=== PATIENT | male | born 1955 | race Caucasian/White ===

== ENCOUNTER 2021-11-23 11:04 | Outpatient (CLI) | payer MEDICARE, SELFPAY ==
--- NOTE | ~2021-11-23 | XR_ITS ---
XR abdomen/kub 1V DATE: 11/23/2021 12:33 INDICATION: Kidney calculus TECHNIQUE: AP ejection, 2 views COMPARISON: 04/06/2004 plantar and FINDINGS: There is approximately 4 x 10 mm calcification overlying the lower pole right kidney. There are several small calcifications overlying the lower pole of the left kidney. Bilateral nephrolithia sis is suspected. Noncontrast CT examination would be more sensitive and accurate for detection of ur inary tract calculi. Surgical clips, right upper quadrant, likely due to cholecystectomy. No evidence of bowel obstruction. The psoas shadows are intact. No visceromegaly is evident. There is rotatory dextroscoliosis and severe degenerative disc disease of the lumbar spine. The sacro iliac joints are intact. IMPRESSION: Suspected bilateral nephrolithiasis Status post cholecystectomy Reviewed, dictated and finalized at [facility]. Reviewed, dictated and finalized at [facility].
== END 2021-11-23 11:05 ==
PROVIDERS: PCP Family Medicine; Visit Provider Urology
DX: N20.0 Calculus of kidney (principal); Z90.49 Acquired absence of other specified parts of digestive tract
CPT/HCPCS: 74018

== ENCOUNTER 2021-12-01 11:24 | Outpatient (CLI) | payer MEDICARE, SELFPAY ==
[2021-12-01 12:16] LABS: Partial Thromboplastin Time 24.6 SECONDS (22.3-36.8); Prothrombin Time 12.8 Seconds (11.1-14.7)
== END 2021-12-01 11:25 | disposition home or self-care (01) ==
LOC: ANHSURGERY 11:29
PROVIDERS: PCP Family Medicine; Visit Provider Urology
DX: N20.0 Calculus of kidney (principal); Z01.818 Encounter for other preprocedural examination
CPT/HCPCS: 36415; 85610; 85730; 87086

== ENCOUNTER 2021-12-09 02:28 | Day surgery (SDC) | payer MEDICARE, SELFPAY ==
[2021-12-01 09:08] VITALS: BMI 39.5
--- NOTE | 2021-12-01 09:37 | PC.NURSE ---
Report to the Outpatient Waiting Room, entrance under the green pavilion located off [facility], at time _0700_ on date _12/09/21_. OR Time: _0900_. - You and your visitor will be asked a series of questions to screen for COVID 19 for your protection. - Only one visitor is allowed at this time. - The patient visitor is requested to leave or wait in car when not with patient. - A mask is required within the hospital. Patients may have clear liquids (water, carbonated beverages, clear teas, apple juice) until 3 hours prior to surgery (0600 AM) with a maximum of 20 ounces. - No food from midnight until time of surgery Take the following medications with a SIP of water the morning of surgery: _CARVEDILOL_ Medications to discontinue per physician _ASPIRIN PER DR. KENNEY'S INSTRUCTIONS - 7 DAYS PRIOR TO SURGERY, Date to take last dose 12/01/21_ Please no deodorant, or body powder the day of surgery. No jewelry (including any body piercings) or valuables the day of surgery, leave them at home. Please take a shower or bath the night before, or the morning of, surgery with an antibacterial soap. Wear comfortable, loose fitting clothing. - Jewelry must be removed prior to entering the operating room. Rings and piercings that are not removed may be cut off. - The hospital will not accept responsibility for valuables. - Please leave all valuables, including medications, at home the day of surgery. If you are going home after surgery, a licensed automation driver must drive you home. - NO public transportation without another adult. - We recommend that an adult stay with you for 24 hours following discharge. - We also recommend that you do not drive, make important decision, drink alcoholic beverages, or take any drugs that were not prescribed by your health care provider for at least 24 hours after your discharge time. Follow any additional instructions given to you from your surgeon. If you or anyone in your household have experienced Covid symptoms in the past week, please notify your surgeon or the nurse liaison at the phone number below for possible testing. Telephone instructions given to _PT'S SPOUSE (KINGS)__and asked if any additional questions and then verbalized understanding. Patient advised to call surgeon office or pre surgery nurse liaison [phone] if any additional questions.
[2021-12-09] VITALS (8 sets, daily range): BP systolic 102–140; BP diastolic 58–86; PULSE 54–66; RESP 12–20; TEMP 36.2–37.2; O2SAT 98–100
--- NOTE | ~2021-12-09 | XR_ITS ---
XR abdomen/kub 1V 12/09/2021 07:09 Indication: Preop ESWL. Renal stones. Procedure: KUB Comparison: 11/23/2021 Findings: There are bilateral renal stones. There is a stone in the expected location of the right UP J measuring up to 1.5 cm at the L4 level. There is severe lumbar spondylosis with dextroscoliosis. Th ere are cholecystectomy clips. There is osteoarthritis of the hips. Lung bases unremarkable. Impression: 1: Bilateral nephrolithiasis with right UPJ stone measuring 1.5 cm. Reviewed, dictated and finalized at location [facility]. Impression: 1: Bilateral nephrolithiasis with right UPJ stone measuring 1.5 cm.
--- NOTE | 2021-12-09 07:30 | ECG_ITS ---
Measurements Intervals [place] Rate: 59 P: 31 MN: 177 QRS: -57 QRSD: 165 T: 30 QT: 450 QTc: 448 Interpretive Statements SINUS BRADYCARDIA WITH SINUS ARRHYTHMIA RIGHT BUNDLE BRANCH BLOCK LEFT ANTERIOR FASCICULAR BLOCK ABNORMAL ECG Electronically Signed On 12-09-2021 7:33:34 CDT by Malcom José D.O.
--- NOTE | 2021-12-09 07:44 | P.PNAN_ITS ---
Anes - Initial Pre Proc Eval Procedure: Operation Date: 12/09/21 09:00 Proposed Procedures p Right Renal, Extracorporeal Shock Wave Lithotripsy - Kaden Wolfe MD Date/Time: 12/09/21 07:44 Surgeon: Kaden Wolfe MD Pre Op Diagnosis: right renal kidney stone Patient Data Age: 66 Gender: M Height: 1.78 m Weight: 125 kg Allergies Allergy/AdvReac Type Severity Reaction Status Date / Time No Known Allergies Allergy Unknown Unverified 12/09/21 07:40 Home Medications Medication Instructions Recorded Confirmed Type aspirin 81 mg capsule 81 mg PO QAM 12/01/21 12/09/21 History atorvastatin 20 mg tablet 20 mg PO QAM 12/01/21 12/09/21 History carvedilol 3.125 mg tablet 3.125 mg PO BID 12/01/21 12/09/21 History ezetimibe 10 mg tablet 10 mg PO QAM 12/01/21 12/09/21 History omeprazole 20 mg capsule,delayed 20 mg PO QAM 12/01/21 12/09/21 History release ramipril 5 mg capsule 5 mg PO HS 12/01/21 12/09/21 History Patient hx anesthesia problems: none Family hx anesthesia problems: none Results Review: All pre-operative results and documents have been reviewed as part of the pre- operative evaluation. [facility] Past Medical History Medical History GERD (gastroesophageal reflux disease) Hyperlipidemia Hypertension Social History Social History Smoking status: Never smoker Second hand tobacco smoke exposure: No Alcohol intake: current Alcohol use details: [place] 6-8/MONTH Substance use: never Substance use type: does not use Living arrangements: with family Spiritual care concerns: No Anes - Eval Final PreProcedure Day of Procedure 12/09/21 07:44 Patient weight: morbidly obese Heart: regular rate and rhythm Lungs: clear to auscultation Neurological: alert and oriented ASA classification: III Emergent: no Anesthetic plan: proceed Anesthesia type and monitoring: general LMA and standard monitoring Results Review: All pre-operative results and documents have been reviewed as part of the pre- operative evaluation. Informed Consent: The patient's anesthetic plan and its attendant risks and benefits were discussed with the patient/family/POA. Questions were solicited and answers provided to the satisfaction of the patient/family/POA.
[2021-12-09] MEDS: LACTATED RINGERS 1,000 ML 30 ML IV CONT ×2 (07:45→09:31)
--- NOTE | 2021-12-09 08:04 | WPDHPUPDATE1 ---
History and Physical Update Update Date/Time: 12/09/21 08:04 History and Physical has been reviewed, including an updated exam of the patient. There are NO changes in the patient's condition. Risks, benefits, and alternatives have been discussed and questions answered. Patient agrees to proceed with procedure. Proceed with ESWL of right UPJ calculus
[2021-12-09] MEDS: ceFAZolin 3 GM/D5W 100 ML 100 ML IVPB (08:17)
--- NOTE | 2021-12-09 09:02 | P.OP_ITS ---
Procedure Note - Detailed Date of Procedure 12/09/21 Pre-op Diagnosis right renal kidney stone/UPJ calculus Post-op Diagnosis Same Procedure Performed Lithotripsy of right UPJ calculus Surgeon Kaden Wolfe MD Anesthesia General Description of Procedure Patient is taken to the operative suite correctly identified. Once anesthesia was obtained the stone was localized in both planes. Two thousand five hundred shocks were given to the stone. Patient tolerated procedure well without any complications and was taken recovery stable condition. He will follow-up in 7- 10 days with KUB. Drains No Packing No Pathology None sent Complications No immediate complications Condition Stable Disposition PACU
[2021-12-09] MEDS: oxyCODONE HCL (*CRX) 5 MG TAB IR PO (09:49)
== END 2021-12-09 10:21 | disposition home or self-care (01) ==
PROVIDERS: PCP Family Medicine; Visit Provider Urology
PROC: (CPT 50590; principal; 2021-12-09 09:00)
DX: N20.1 Calculus of ureter (principal); I10 Essential (primary) hypertension; E78.5 Hyperlipidemia, unspecified; K21.9 Gastro-esophageal reflux disease without esophagitis; Z79.82 Long term (current) use of aspirin; E66.01 Morbid (severe) obesity due to excess calories; Z68.38 Body mass index [BMI] 38.0-38.9, adult
CPT/HCPCS: 50590; 36415; 74018; 85610; 85730; 87086; 93005; A9270; J0690; J1100; J2405; J2704; J7120

== ENCOUNTER 2021-12-21 11:37 | Outpatient (CLI) | payer MEDICARE, SELFPAY ==
--- NOTE | ~2021-12-21 | XR_ITS ---
XR abdomen/kub 1V 12/21/2021 12:02 Indication: Renal stones Procedure: KUB Comparison: 12/09/2021 Findings: Bowel gas pattern is nonobstructive. There are left renal stones. There is a calcification at the L3 level on the right, suspicious for ureteral stone. Bowel gas pattern nonobstructive. Severe lumbar spondylosis with dextroscoliosis. No acute osseous abnormality. There are cholecystectomy cli ps. Impression: 1: Possible right ureteral stone at the L3 level just below the transverse process. 2: Left nephrolithiasis. Reviewed, dictated and finalized at location A. Impression: 1: Possible right ureteral stone at the L3 level just below the transverse proc ess. 2: Left nephrolithiasis.
== END 2021-12-21 11:38 ==
LOC: MICIMG 11:40
PROVIDERS: PCP Family Medicine; Visit Provider Urology
DX: N20.0 Calculus of kidney (principal); M47.816 Spondylosis without myelopathy or radiculopathy, lumbar region
CPT/HCPCS: 74018

== ENCOUNTER 2021-12-23 13:31 | Outpatient (CLI) | payer MEDICARE, SELFPAY | END 2021-12-23 13:32 | disposition home or self-care (01) | LOC: ANHSURGERY 13:34 | PROVIDERS: PCP Family Medicine; Visit Provider Urology | DX: N20.1 Calculus of ureter (principal); Z01.818 Encounter for other preprocedural examination | CPT/HCPCS: 87086 ==

== ENCOUNTER 2021-12-27 00:12 | Day surgery (SDC) | payer MEDICARE, SELFPAY ==
--- NOTE | 2021-12-23 11:00 | PC.NURSE ---
Report to the Outpatient Waiting Room, entrance under the green pavilion located off [facility], at time 0830 on date __12/27/21 . OR Time: _1030 . - You and your visitor will be asked a series of questions to screen for COVID 19 for your protection. - Only one visitor is allowed at this time. - The patient visitor is requested to leave or wait in car when not with patient. - A mask is required within the hospital. Patients may have clear liquids (water, carbonated beverages, clear teas, apple juice) until 3 hours prior to surgery with a maximum of 20 ounces. - No food from midnight until time of surgery - Infants may have breast milk until 4 hours before surgery, infant formula 6 hours prior to surgery. - Children will be allowed to drink immediately following surgery. If applicable, please bring a bottle or sippy cup to assist with drinking. Juice, water, soda, and popsicles are readily available. For infants on formula, please bring formula the day of surgery. Pacifiers are allowed. Take the following medications with a SIP of water the morning of surgery: ____CARVEDILOL Medications to discontinue per physician ____ASPIRIN PER DR KENNEY, VITAMINE C 3 DAYS PRE OP Date to take last dose__12/23/21 Please no make-up, nail cypriot, hairspray, perfume, deodorant, or body powder the day of surgery. No jewelry (including any body piercings) or valuables the day of surgery, leave them at home. Please take a shower or bath the night before, or the morning of, surgery with an antibacterial soap. Wear comfortable, loose fitting clothing. Children are encouraged to wear pajamas. - Jewelry must be removed prior to entering the operating room. Rings and piercings that are not removed may be cut off. - The hospital will not accept responsibility for valuables. - Please leave all valuables, including medications, at home the day of surgery. If you are going home after surgery, a licensed auto haulaway driver must drive you home. - NO public transportation without another adult. - We recommend that an adult stay with you for 24 hours following discharge. - We also recommend that you do not drive, make important decision, drink alcoholic beverages, or take any drugs that were not prescribed by your health care provider for at least 24 hours after your discharge time. For Pediatric surgeries, we recommend two adults accompany the child home (only one inside the building at this time). Follow any additional instructions given to you from your surgeon. If you or anyone in your household have experienced Covid symptoms in the past week, please notify your surgeon or the nurse liaison at the phone number below for possible testing. Telephone instructions given to __PT'S KINGS and asked if any additional questions and then verbalized understanding. Patient advised to call surgeon office or pre surgery nurse liaison [phone] if any additional questions.
[2021-12-23 11:06] VITALS: BMI 41.9
--- NOTE | 2021-12-23 11:07 | PC.NURSE ---
STATES NO CHANGE IN HEALTH HX SINCE LAST INTERVIEW ON 12/01/21
--- NOTE | 2021-12-26 14:38 | P.PNAN_ITS ---
Anes - Initial Pre Proc Eval Procedure: Operation Date: 12/27/21 10:30 Proposed Procedures p Cystoscopy, Right Retrograde Pyelogram, Right Ureteroscopy, Right Stone Extraction, Right Ureteral Stent Placement, Possible Holmium Laser Lithotripsy - Kaden Wolfe MD Date/Time: 12/26/21 14:38 Surgeon: Kaden Wolfe MD Pre Op Diagnosis: Right ureteral stone Patient Data Age: 66 Gender: M Height: 1.73 m Weight: 125.2 kg Allergies Allergy/AdvReac Type Severity Reaction Status Date / Time No Known Allergies Allergy Unknown Unverified 12/23/21 10:53 Home Medications Medication Instructions Recorded Confirmed Type aspirin 81 mg capsule 81 mg PO QAM 12/01/21 12/23/21 History atorvastatin 20 mg tablet 20 mg PO QAM 12/01/21 12/23/21 History carvedilol 3.125 mg tablet 3.125 mg PO BID 12/01/21 12/23/21 History ezetimibe 10 mg tablet 10 mg PO QAM 12/01/21 12/23/21 History omeprazole 20 mg capsule,delayed 20 mg PO QAM 12/01/21 12/23/21 History release ramipril 5 mg capsule 5 mg PO HS 12/01/21 12/23/21 History ascorbic acid (vitamin C) 500 mg 500 mg PO DAILY 12/23/21 12/23/21 History capsule Patient hx anesthesia problems: none Family hx anesthesia problems: none Results Review: All pre-operative results and documents have been reviewed as part of the pre- operative evaluation. [facility] Past Medical History Medical History (Updated 12/26/21 @ 14:39 by Trey Sanches MD) GERD (gastroesophageal reflux disease) Hyperlipidemia Hypertension Morbid obesity with BMI of 40.0-44.9, adult Social History Social History Smoking status: Never smoker Second hand tobacco smoke exposure: No Alcohol intake: current Alcohol use details: 8 BEERS EVERY 2 WKS Substance use: never Substance use type: does not use Living arrangements: with family Spiritual care concerns: No Anes - Eval Final PreProcedure Day of Procedure 12/26/21 14:38 Patient weight: morbidly obese Heart: regular rate and rhythm Lungs: clear to auscultation Neurological: alert and oriented ASA classification: III Emergent: no Anesthetic plan: proceed Anesthesia type and monitoring: general LMA and standard monitoring Results Review: All pre-operative results and documents have been reviewed as part of the pre- operative evaluation. Informed Consent: The patient's anesthetic plan and its attendant risks and benefits were discussed with the patient/family/POA. Questions were solicited and answers provided to the satisfaction of the patient/family/POA.
[2021-12-27] VITALS (8 sets, daily range): BP systolic 109–137; BP diastolic 67–89; PULSE 56–82; RESP 14–18; TEMP 36.2–37.2; O2SAT 95–100
--- NOTE | ~2021-12-27 | XR_ITS ---
EXAMINATION: XR retrograde pyelo w/stent RT DATE: 12/27/2021 12:04 INDICATION: Right retrograde Polygram for ureteral stent placement. TECHNIQUE: 6 fluoroscopic images of the abdomen and pelvis were obtained during procedure performed celeste Wolfe. Radiologist was not present for the imaging or procedure. The amount of fluoroscopy t christopher used during this procedure was 0.4 minutes. COMPARISON: None. FINDINGS: Images demonstrate retrograde ureteroscope advancement into the right ureter with retrograde contrast injection demonstrating mild to moderate right hydronephrosis. A wire advanced through the right ure ter and is coiled in the dilated upper pole calyx of the right kidney. Subsequent images demonstrate placement of a right internal ureteral stent with proximal tip at the right renal pelvis and distal t ip coiled in the decompressed bladder. Cholecystectomy clips in the right upper quadrant. Mild lumbar dextroscoliosis with moderate spondylosis. IMPRESSION: 1. Mild right hydronephrosis with placement of a right internal ureteral stent which is in expected p osition on the final images. See procedure note for further detail. Reviewed, dictated and finalized at location A. IMPRESSION: 1. Mild right hydronephrosis with placement of a right internal ureteral stent which is in expected position on the final images. See procedure note for furth er detail.
[2021-12-27] MEDS: LACTATED RINGERS 1,000 ML 30 ML IV CONT (08:35)
--- NOTE | 2021-12-27 09:48 | WPDHPUPDATE1 ---
History and Physical Update Update Date/Time: 12/27/21 09:48 History and Physical has been reviewed, including an updated exam of the patient. There are NO changes in the patient's condition. Risks, benefits, and alternatives have been discussed and questions answered. Patient agrees to proceed with procedure.
[2021-12-27] MEDS: ceFAZolin 3 GM/D5W 100 ML 100 ML IVPB (11:16)
[2021-12-27] MEDS: LIDOCAINE HCL 2% GEL UROJET 10 ML PKG MUCOUS MEM (11:22)
--- NOTE | 2021-12-27 12:04 | W.PM.PROC2 ---
Procedure Note - Detailed Date of Procedure 12/27/21 Pre-op Diagnosis Right ureteral stone Post-op Diagnosis Same Procedure Performed Cystoscopy, right retrograde pyelogram, right ureteroscopy with holmium laser, stone extraction, right ureteral stent placement 4.8 Salvadorean by 28 cm Surgeon Kaden Wolfe MD Anesthesia General Description of Procedure Patient is taken to the operative suite correctly identified. Once anesthesia was obtained was placed in dorsal lithotomy position and prepped and draped usual sterile fashion. Twenty-two Salvadorean scope was inserted in the bladder. Prostate is enlarged with slight median lobe. The bladder is inspected entirety. There was no tumors noted. Right ureteral orifice was cannulated with a guidewire. Ureteral access sheath was then placed. Mini flexible scope was inserted. The stone was too large to retrieve 1 piece. Using a 272 micron fiber we lasered the stone into multiple pieces. The largest stone fragments were retrieved sent for analysis. Reinspection revealed no residual ureteral stones. Pyelogram was then performed confirm placement of the stent. 4.8 Salvadorean contour stent was then placed with the proximal end coiled in the renal pelvis and the distal in the bladder. Bladder was drained. 2% viscous lidocaine was inserted into the urethra patient was taken recovery stable condition. he will follow up in the we office in 1-2 weeks for stent removal, call for appointment. Drains Yes Packing No Pathology Yes Complications No immediate complications Condition Stable Disposition PACU
[2021-12-27] MEDS: fentaNYL CITRATE INJ (*CRX) 100 MCG/2 ML VIAL 25 MCG IV PUSH ×4 (12:14→12:27)
[2021-12-27] MEDS: oxyCODONE HCL (*CRX) 5 MG TAB IR PO (13:40)
== END 2021-12-27 14:02 | disposition home or self-care (01) ==
PROVIDERS: PCP Family Medicine; Visit Provider Urology
PROC: (CPT 52352; principal; 2021-12-27 10:30)
DX: N20.1 Calculus of ureter (principal); Z79.82 Long term (current) use of aspirin; K21.9 Gastro-esophageal reflux disease without esophagitis; I10 Essential (primary) hypertension; E78.5 Hyperlipidemia, unspecified; E66.01 Morbid (severe) obesity due to excess calories; Z68.41 Body mass index [BMI] 40.0-44.9, adult
CPT/HCPCS: 52356; 74420; 82365; 87086; 88300; A9270; C1769; C1894; C2617; J0690; J1100; J2405; J2704; J3010; J7120